=== PATIENT | male | born 1945 | race Caucasian/White ===

== ENCOUNTER → 2016-12-15 | Outpatient (CLI) | payer MEDICARE, BC ==
[~2016-12-15] VITALS: Ht 185.4 cm; Wt 101.8 kg
[~2016-12-15] MED LIST: ASPIRIN 81M81 MG/TA2 PO; COLACE 100100 MG/CAP PO; CRESTOR20 MG PO; GLUCOSAMIDE; HYZAAR 50-12.1 UDTAB PO; NITROQUICK0.4 MG SL; NITROSTAT0.4 MG/TAB SL; NORCO 325 MG-51 TAB PO; NORCO 325 MG-7.1 TAB PO; SINGULAIR 110 MG/TAB PO; SYNTHROID0.1 MG/TAB PO; SYNTHROID0.125 MG/T PO; VENTOLIN0.09 MG IH; VITAMIN B121000 MCG PO; VITAMIN D PO; VITAMIND3 5000 PO; ZOCOR 20MG20 MG PO; ZYRTEC 10MG10 MG PO
[2016-12-15 13:28] VITALS: BP 141/80; PULSE 79
[2016-12-15 14:49] VITALS: BP 145/84; PULSE 71
== END ==
LOC: COL.RAD 12:58
DX: C83.31 Diffuse large B-cell lymphoma, lymph nodes of head, face, and neck (principal); C73 Malignant neoplasm of thyroid gland
CPT/HCPCS: 25757

== ENCOUNTER 2017-01-16 09:02 | Day surgery (SDC) | payer MEDICARE, BC ==
[~2017-01-16] VITALS: Ht 185.4 cm; Wt 102.2 kg
[~2017-01-16 09:02] MED LIST changes: -COLACE 100100 MG/CAP PO; -CRESTOR20 MG PO; -NITROSTAT0.4 MG/TAB SL; -NORCO 325 MG-51 TAB PO; -VENTOLIN0.09 MG IH; -VITAMIN D PO; -VITAMIND3 5000 PO
[2017-01-16 09:43] VITALS: BP 151/98; PULSE 66; TEMP 98
[2017-01-16] MEDS ORDERED: VENTOLIN0.09 MG IH (09:58)
[2017-01-16] MEDS ORDERED: NITROSTAT0.4 MG/TAB SL (09:59)
[2017-01-16] MEDS ORDERED: VITAMIN D PO (10:00)
--- NOTE | 2017-01-16 10:13 | NUR ---
TO RM AT 0921 - CALL LIGHT IN REACH AT BEDSIDE.
[2017-01-16 12:31] VITALS: BP 144/96; PULSE 72; TEMP 97.5
--- NOTE | 2017-01-16 12:31 | NUR ---
TO RM 8 PER CART FROM [facility] ALERT ORIENTED X3 TALKING TO STAFF AND . RECEIVED COFFEE AND BEATRICE CRACKERS. DENIES PAIN OR DISCOMFORT LEWIS SET OVER INCISION.
[2017-01-16 12:45] VITALS: BP 120/90; PULSE 70
--- NOTE | 2017-01-16 12:45 | NUR ---
RECEIVED 3RD CUP COFFEE TOLERATED WELL
[2017-01-16 13:00] VITALS: BP 139/70; PULSE 69
[2017-01-16] MEDS ORDERED: NORCO 325 MG-51 TAB PO (13:00)
--- NOTE | 2017-01-16 13:00 | NUR ---
UP AMBULATED TO BATHROOM AND TOLERATED WELL.
[2017-01-16] MEDS ORDERED: COLACE 100100 MG/CAP PO (13:01)
--- NOTE | 2017-01-16 13:20 | NUR ---
RECEIVED DISCHARGE INSTRUCTIONS AND VERBALIZED UNDERSTANDING. DISCONTINUED IV AND INT
--- NOTE | 2017-01-16 13:33 | NUR ---
DISCHARGED PER WC BY NURSING STAFF TO PRIVATE CAR IN CARE OF .
== END 2017-01-16 13:35 | disposition home or self-care (01) ==
LOC: SDCO 09:02
DX: C83.31 Diffuse large B-cell lymphoma, lymph nodes of head, face, and neck (principal); I11.9 Hypertensive heart disease without heart failure; J44.9 Chronic obstructive pulmonary disease, unspecified; Z80.1 Family history of malignant neoplasm of trachea, bronchus and lung; Z85.72 Personal history of non-Hodgkin lymphomas; E03.9 Hypothyroidism, unspecified; Z87.891 Personal history of nicotine dependence; Z95.5 Presence of coronary angioplasty implant and graft; G47.33 Obstructive sleep apnea (adult) (pediatric); J32.9 Chronic sinusitis, unspecified; Z87.01 Personal history of pneumonia (recurrent); K57.90 Diverticulosis of intestine, part unspecified, without perforation or abscess without bleeding
CPT/HCPCS: C1788; J0690; J1100; J1644; J2250; J2704; J3010; J7120; Q9967

== ENCOUNTER 2017-02-06 13:51 | Outpatient (RCR) | payer MEDICARE, BC ==
[~2017-02-06] VITALS: Ht 185.4 cm; Wt 103.5 kg
[2017-02-06] VITALS (9 sets, daily range): BP systolic 116–146; BP diastolic 63–83; PULSE 67–82; TEMP 97.4–98.4
[~2017-02-06 13:51] MED LIST changes: +COLACE 100100 MG/CAP PO; +NITROSTAT0.4 MG/TAB SL; +NORCO 325 MG-51 TAB PO; +VENTOLIN0.09 MG IH; +VITAMIN D PO
[2017-02-06] MEDS ORDERED: VITAMIND3 5000 PO (16:26)
[2017-02-06] MEDS ORDERED: CRESTOR20 MG PO (16:27)
== END 2017-02-06 19:59 | disposition home or self-care (01) ==
LOC: EUO 13:51
DX: Z51.11 Encounter for antineoplastic chemotherapy (principal); C85.90 Non-Hodgkin lymphoma, unspecified, unspecified site
CPT/HCPCS: J1644; J7050; P9016

== ENCOUNTER → 2017-10-25 | Outpatient (CLI) | payer MEDICARE, BC ==
[~2017-10-25] MED LIST changes: +CRESTOR20 MG PO; +VITAMIND3 5000 PO
== END ==
LOC: COL.VAS 09:09
DX: I65.23 Occlusion and stenosis of bilateral carotid arteries (principal)

== ENCOUNTER → 2017-11-27 | Outpatient (CLI) | payer MEDICARE, BC | LOC: ZCOL.LAB 16:11 | DX: T81.31XA Disruption of external operation (surgical) wound, not elsewhere classified, initial encounter (principal) ==

== ENCOUNTER → 2017-12-25 | Outpatient (CLI) | payer MEDICARE, BC ==
[2017-12-25 10:17] LABS: HEMATOCRIT 41.3 % (42.0-52.0); HEMOGLOBIN 14.2 g/dl (13.5-18.0); MEAN CELL VOLUME 96 fl (80.0-100.0); MEAN CORPUSCULAR HEMOGLOBIN 33 pg (27.0-31.0); MEAN CORPUSCULAR HGB CONC 34 g/dl (33.0-37.0); MEAN PLATELET VOLUME 9.1 fl (7.4-10.4); PLATELET COUNT 207 K/mm3 (130-400); REDCELL DISTRIBUTION WIDTH-CV 14.6 % (11.5-14.5)
[2017-12-25 10:27] LABS: ALBUMIN 4.1 gm/dL (3.5-5.0); BILIRUBIN,TOTAL 0.6 mg/dL (0.0-1.0); CALCIUM 8.9 mg/dL (8.4-10.2); CREATININE, serum 0.93 mg/dL (0.66-1.25); POTASSIUM 3.9 mmol/L (3.4-5.0); TOTAL PROTEIN 6.8 gm/dL (6.4-8.2)
[2017-12-25 12:52] LABS: BAND 8 % (0-10); EOSINOPHIL 3 % (0-4); LYMPHOCYTE 28 % (20.0-51.0); NEUTROPHILS 44 % (42.0-75.2)
[2017-12-25 12:53] LABS: ANISOCYTOSIS 1+; PLATELET ESTIMATE NORMAL (NORMAL)
== END ==
LOC: COL.RAD 09:52
PROVIDERS: Internal Medicine
DX: C83.38 Diffuse large B-cell lymphoma, lymph nodes of multiple sites (principal)
CPT/HCPCS: Q9967

== ENCOUNTER → 2019-03-22 | Outpatient (CLI) | payer MEDICARE, BC | LOC: COL.RAD 10:24 | DX: R06.02 Shortness of breath (principal) ==

== ENCOUNTER → 2019-08-28 | Outpatient (CLI) | payer MEDICARE, BC | LOC: COL.RAD 08:54 | DX: C83.38 Diffuse large B-cell lymphoma, lymph nodes of multiple sites (principal); J47.9 Bronchiectasis, uncomplicated | CPT/HCPCS: Q9967 ==

== ENCOUNTER 2019-10-06 18:21 | Emergency (ER) | payer MEDICARE, BC ==
[~2019-10-06] VITALS: Ht 185.4 cm; Wt 97.7 kg
[~2019-10-06 18:21] MED LIST changes: +00186-0372-20 IH; +K-TAB10 PO
[2019-10-06 18:24] VITALS: BP 119/66; TEMP 97
[2019-10-06 18:59] VITALS: PULSE 78
== END 2019-10-06 19:00 | disposition home or self-care (01) ==
LOC: COL.ER 18:21
DX: S61.210A Laceration without foreign body of right index finger without damage to nail, initial encounter (principal); S61.011A Laceration without foreign body of right thumb without damage to nail, initial encounter; I25.10 Atherosclerotic heart disease of native coronary artery without angina pectoris; Z95.5 Presence of coronary angioplasty implant and graft; Z23 Encounter for immunization; Z79.51 Long term (current) use of inhaled steroids; X58.XXXA Exposure to other specified factors, initial encounter; Y92.009 Unspecified place in unspecified non-institutional (private) residence as the place of occurrence of the external cause

== ENCOUNTER → 2020-03-04 | Outpatient (CLI) | payer MEDICARE, BC | LOC: COL.RAD 08:23 | DX: C83.38 Diffuse large B-cell lymphoma, lymph nodes of multiple sites (principal) | CPT/HCPCS: Q9967 ==

== ENCOUNTER → 2022-09-14 | Outpatient (CLI) | payer MEDICARE, BC | LOC: COL.RAD 09:38 | DX: Z13.6 Encounter for screening for cardiovascular disorders (principal); F17.201 Nicotine dependence, unspecified, in remission ==